=== PATIENT | male | born 1930 | race African-American/Black ===

== ENCOUNTER 2017-12-09 12:03 | Emergency (ER) ==
[2017-12-09 12:12] VITALS: BP 172/102; TEMP 97.9; BMI 21.9
--- NOTE | 2017-12-09 14:27 | ED.PDOC ---
General ED Provider: Dr. DOUGLAS VELEZ Chief Complaint: Urinary Problem Stated Complaint: frequency, urgency Time Seen by Physician: 12:10 (seen with and april ) Mode of Arrival: Walk-In Information Source: Patient Exam Limitations: No limitations Nursing and Triage Documentation Reviewed and Agree: Yes Reviewed sepsis parameters & appropriate labs ordered?: Yes (see with entire nursing staff) System Inflammatory Response Syndrome: Not Applicable Sepsis Protocol: For patient's 13 years and over: Temp is 96.8 and below OR 101 and greater Pulse >90 BPM Resp >20/minute Acutely Altered Mental Status Are patient's symptoms suggestive of a new infection, such as: -Pneumonia -Skin, Soft Tissue -Endocarditis -UTI -Bone, Joint Infection -Implantable Device -Acute Abdominal Infection -Wound Infection -Meningitis -Blood Stream Catheter Infection -Unknown System Inflammatory Response Syndrome: Not Applicable Complaint Exam - Complaint/Exam Patient Complains of: Denies: Scrotal pain, Scrotal swelling, Groin pain, Groin swelling, Dysuria Onset/Duration: 1day Symptoms Are: Resolved Timing: Intermittent Episodes of Voiding Over Last 12 Hours: 5 Initial Severity: Mild Current Severity: Mild Location of Pain: Reports: None, Left Aggravating: Reports: None Alleviating: Reports: None Associated Signs and Symptoms: Reports: Increased urine frequency. Denies: Diaphoresis, Back pain, Fever, Hematuria, Dysuria, Constipation, Blood in stool , Rectal pain, Appetite change, Nausea, Vomiting, Penile swelling, Penile discharge, Decreased urine output, Increased thirst, Decreased activity, Lethargy, Scrotal pain, Scrotal swelling, Abdominal Pain Related History: Reports: Similar episode Testicular Torsion Risk Factors: Reports: None Surgical Obstruction Risk Factors: Reports: None Related Surgical History: Reports: None Abdominal Findings: Present: None Differential Diagnoses: UTI Review of Systems - Review Of Systems Constitutional: Reports: No symptoms Eyes: Reports: No symptoms Ears, Nose, Mouth, Throat: Reports: No symptoms Respiratory: Reports: No symptoms Cardiac: Reports: No symptoms GI: Reports: No symptoms : Reports: Frequency Musculoskeletal: Reports: No symptoms Skin: Reports: No symptoms Neurological: Reports: No symptoms Endocrine: Reports: No symptoms Hematologic/Lymphatic: Reports: No symptoms All Other Systems: Reviewed and Negative Past Medical History - Past Medical History Previously Healthy: Yes Endocrine: Reports: None Cardiovascular: Reports: Hypertension Respiratory: Reports: None Hematological: Reports: None Gastrointestinal: Reports: None Genitourinary: Reports: None Neuro/Psych: Reports: None Musculoskeletal: Reports: None Cancer: Reports: None Other Pertinent Past Medical History: htn - Surgical History General Surgical History: Reports: Orthopedic (left knee replacement) - Family History Family History: Reports: Unknown - Social History Smoking Status: Former smoker Hx Substance Use: No Alcohol Screening: None Physical Exam - Physical Exam Appearance: Well-appearing, No pain distress, Well-nourished Eyes: MARILEE, EOMI, Conjunctiva clear ENT: Ears normal, Nose normal, Oropharynx normal Respiratory: Airway patent, Breath sounds clear, Breath sounds equal, Respirations nonlabored Cardiovascular: RRR, Pulses normal, No rub, No murmur GI/: Soft, Nontender, No masses, Bowel sounds normal, No Organomegaly Musculoskeletal: Normal strength, ROM intact, No edema, No calf tenderness Skin: Warm, Dry, Normal color Neurological: Sensation intact, Motor intact, Reflexes intact, Cranial nerves intact, Alert, Oriented Psychiatric: Affect appropriate, Mood appropriate Critical Care Note - Critical Care Note Total Time (mins): 0 Course - Course Hematology/Chemistry: 12/09/17 13:20 12/09/17 13:20 Orders, Labs, Meds: Lab Review 12/09/17 12/09/17 13:20 13:20 WBC 4.87 RBC 5.07 Hgb 12.0 L Hct 36.9 L MCV 72.8 L MCH 23.7 L MCHC 32.5 RDW Coeff of Yumiko 16.4 H Plt Count 154 Immature Gran % (Auto) 0.2 Neut % (Auto) 45.8 Lymph % (Auto) 37.8 Tucker % (Auto) 15.0 H Eos % (Auto) 1.0 Baso % (Auto) 0.2 Immature Gran # (Auto) 0.0 Neut # 2.2 Lymph # 1.8 Tucker # 0.7 Eos # 0.1 Baso # 0.0 Sodium 138 Potassium 3.6 Chloride 104 Carbon Dioxide 26 Anion Gap 11.6 BUN 19 H Creatinine 1.11 H Estimated GFR (MDRD) 76.00 BUN/Creatinine Ratio 17.11 Glucose 86 Calcium 8.9 Total Bilirubin 0.7 AST 21 ALT 16 Alkaline Phosphatase 74 Total Protein 7.2 Albumin 3.0 L Globulin 4.2 Albumin/Globulin Ratio 0.71 Orders Category Date Time Status CBC W/ AUTO DIFF Stat LAB 12/09/17 12:49 Ordered COMPREHENSIVE METABOLIC PANEL Stat LAB 12/09/17 12:49 Ordered URINALYSIS C & S IF INDICATED Stat LAB 12/09/17 12:[address] ABD/PEL WO RENAL STONE PROT Stat RADS 12/09/17 12:50 Ordered Vital Signs: Temp Pulse Resp BP Pulse Ox 12/09/17 12:07 97.9 F 73 16 172/102 H 94 L Departure - Departure Time of Disposition: 15:00 Disposition: HOME SELF-CARE Discharge Problem: Urinary symptoms Anemia Qualifiers: Iron deficiency anemia type: unspecified iron deficiency Instructions: Urinary Tract Infection in Men (ED), Urinary Urgency and Frequency (GEN) Condition: Good Pt referred to PMD for follow-up: Yes Additional Instructions: Please call your Family Physician as soon as possible to schedule a follow-up appointment. Allergies/Adverse Reactions: Allergies No Known Allergies Allergy (Unverified 12/09/17 12:05) Home Medications: Ambulatory Orders Blood Pressure Med 02/22/16 Phenazopyridine HCl [Pyridium] 200 mg PO TID PRN #10 tablet 02/22/16
== END 2017-12-09 14:40 | disposition home or self-care (01) ==
LOC: ED 12:03
DX: D50.9 Iron deficiency anemia, unspecified (principal); R35.0 Frequency of micturition; R39.15 Urgency of urination; I10 Essential (primary) hypertension
CPT/HCPCS: 36415; 80053; 81001; 85025; 99283

== ENCOUNTER 2018-08-14 13:27 | Emergency (ER) ==
[2018-08-14 13:39] VITALS: BP 156/110; TEMP 98; BMI 16.5
--- NOTE | 2018-08-14 13:56 | ED.PDOC ---
General ED Provider: Dr. PRISCA KEYES Chief Complaint: Altered Mental Status Stated Complaint: Unsure of why he is here in the ER;. EMS states that an [employer] worker came for visit today and found pt altered. Patient was notably is unkempt, had been incontinet of urine and bowel and clothing had a strong odor of urine. State he had dried urine stains on clothing noted. EMS checked blood sugar at residence and wast 44. he was administered oral glucose. Currently patient is alert. Patient denies any pain. EMS reported that living conditions were bad. Time Seen by Physician: 13:30 Mode of Arrival: Stretcher Information Source: Patient, EMT Exam Limitations: Clinical condition, Altered mental status Primary Care Provider: EMIR CAMPBELL Referred to ED by: Other Seen Within Last 72 Hours for Same Complaint By: ED Nursing and Triage Documentation Reviewed and Agree: Yes Does patient meet sepsis criteria?: No System Inflammatory Response Syndrome: Not Applicable Sepsis Protocol: For patient's 13 years and over: Temp is 96.8 and below OR 101 and greater Pulse >90 BPM Resp >20/minute Acutely Altered Mental Status Are patient's symptoms suggestive of a new infection, such as: -Pneumonia -Skin, Soft Tissue -Endocarditis -UTI -Bone, Joint Infection -Implantable Device -Acute Abdominal Infection -Wound Infection -Meningitis -Blood Stream Catheter Infection -Unknown Review of Systems - Review Of Systems Constitutional: Reports: No symptoms, Weakness Eyes: Reports: No symptoms Ears, Nose, Mouth, Throat: Reports: No symptoms Respiratory: Reports: No symptoms Cardiac: Reports: No symptoms GI: Reports: No symptoms : Reports: No symptoms Musculoskeletal: Reports: No symptoms Skin: Reports: No symptoms Neurological: Reports: No symptoms, Weakness Endocrine: Reports: No symptoms Hematologic/Lymphatic: Reports: No symptoms All Other Systems: Reviewed and Negative Past Medical History - Past Medical History Previously Healthy: Yes Endocrine: Reports: None Cardiovascular: Reports: Hypertension Respiratory: Reports: None Hematological: Reports: None Gastrointestinal: Reports: None Genitourinary: Reports: None Neuro/Psych: Reports: None Musculoskeletal: Reports: None Cancer: Reports: None Other Pertinent Past Medical History: htn - Surgical History General Surgical History: Reports: Orthopedic (left knee replacement) - Family History Family History: Reports: Unknown - Social History Smoking Status: Former smoker Hx Substance Use: No Alcohol Screening: None Physical Exam - Physical Exam Appearance: Thin, Cachectic Ill-appearing: Mild Pain Distress: None Eyes: MARILEE, EOMI, Conjunctiva clear ENT: Ears normal, Nose normal, Oropharynx normal Neck: Supple Respiratory: Airway patent, Breath sounds clear, Breath sounds equal, Respirations nonlabored Cardiovascular: RRR, Pulses normal, No rub, No murmur GI/: Soft, Nontender, No masses, Bowel sounds normal, No Organomegaly Musculoskeletal: Normal strength, ROM intact, No edema, No calf tenderness Skin: Warm, Dry, Normal color Neurological: Sensation intact, Motor intact, Reflexes intact, Cranial nerves intact, Alert, Oriented Psychiatric: Affect appropriate, Mood appropriate Physician Notification - Case Discussed Physician Notified: Dr Early Time of Notification: 16:20 (Discussed case -prefers to transfer to [facility] for critical care possible dialysis) Physician Notified: Dr Otto at [facility] Time of Notification: 16:45 Critical Care Note - Critical Care Note Total Time (mins): 60 Course - Course Hematology/Chemistry: 08/14/18 14:56 08/14/18 14:56 Orders, Labs, Meds: Lab Review 08/14/18 08/14/18 08/14/18 14:56 14:56 14:56 WBC 6.54 RBC 5.49 Hgb 12.7 L Hct 41.7 L MCV 76.0 L MCH 23.1 L MCHC 30.5 L RDW Coeff of Yumiko 20.6 H Plt Count 85 L Immature Gran % (Auto) 0.8 Neut % (Auto) 76.6 Lymph % (Auto) 15.7 Waldo % (Auto) 6.4 Eos % (Auto) 0.3 Baso % (Auto) 0.2 Immature Gran # (Auto) 0.1 Neut # (Auto) 5.0 Lymph # (Auto) 1.0 Waldo # (Auto) 0.4 Eos # (Auto) 0.0 Baso # (Auto) 0.0 Anisocytosis 1+ Puncture Site O2 Saturation ABG pH ABG pCO2 ABG pO2 ABG HCO3 ABG Total CO2 ABG Base Excess Mauro Test FiO2 % Sodium 167.6 H* Potassium 4.98 Chloride 142.0 H* Carbon Dioxide 18.4 L Anion Gap 12.18 BUN 95.7 H* Creatinine 6.61 H* Estimated GFR (MDRD) 10.00 BUN/Creatinine Ratio 14.47 Glucose 216.5 H Calcium 9.24 Magnesium 2.92 H Total Bilirubin 1.34 H AST 25.5 ALT 19.9 Alkaline Phosphatase 59.6 Total Protein 7.04 Albumin 3.43 L Globulin 3.61 Albumin/Globulin Ratio 0.95 Urine Color Urine Clarity Urine pH Ur Specific [place] Urine Protein Urine Glucose (UA) Urine Ketones Urine Blood Urine Nitrite Urine Bilirubin Urine Urobilinogen Ur Leukocyte Esterase Urine Microscopic RBC Urine Microscopic WBC Ur Squamous Epith Cells 08/14/18 08/14/18 15:40 16:24 WBC RBC Hgb Hct MCV MCH MCHC RDW Coeff of Yumiko Plt Count Immature Gran % (Auto) Neut % (Auto) Lymph % (Auto) Waldo % (Auto) Eos % (Auto) Baso % (Auto) Immature Gran # (Auto) Neut # (Auto) Lymph # (Auto) Waldo # (Auto) Eos # (Auto) Baso # (Auto) Anisocytosis Puncture Site Rr O2 Saturation 90.0 L ABG pH 7.283 L* ABG pCO2 33.9 L ABG pO2 66.0 L ABG HCO3 16.0 L ABG Total CO2 17 L ABG Base Excess -11 L Mauro Test + FiO2 % 21.0 Sodium Potassium Chloride Carbon Dioxide Anion Gap BUN Creatinine Estimated GFR (MDRD) BUN/Creatinine Ratio Glucose Calcium Magnesium Total Bilirubin AST ALT Alkaline Phosphatase Total Protein Albumin Globulin Albumin/Globulin Ratio Urine Color Yellow Urine Clarity Clear Urine pH 6.0 Ur Specific [place] 1.015 Urine Protein 1+ Urine Glucose (UA) Negative Urine Ketones Negative Urine Blood Trace-lysed Urine Nitrite Negative Urine Bilirubin Negative Urine Urobilinogen 0.2 Ur Leukocyte Esterase Negative Urine Microscopic RBC 0-2 Urine Microscopic WBC 0-2 Ur Squamous Epith Cells 0-2 Orders Category Date Time Status ABG DRAW REQUEST Stat CARDIO 08/14/18 16:24 Completed EKG-(ED ONLY) Stat CARDIO 08/14/18 14:20 Completed OXYGEN [ED APPLY O2] .ONCE EMERGENCY 08/14/18 16:22 Active ABG Stat LAB 08/14/18 16:24 Completed BLOOD CULTURE (ED ONLY) Stat LAB 08/14/18 14:56 Received CBC W/ AUTO DIFF Stat LAB 08/14/18 14:56 Completed CMP [COMPREHENSIVE METABOLIC PANEL] Stat LAB 08/14/18 14:56 Completed MAGNESIUM Stat LAB 08/14/18 14:56 Completed RBC MORPHOLOGY Stat LAB 08/14/18 14:56 Completed UA [URINALYSIS C & S IF INDICATED] Stat LAB 08/14/18 15:40 Completed 0.9 % Sodium Chloride [Saline Flush] MEDS 08/14/18 14:19 Active 1 syr IVF PRN PRN Dextrose 5 %-0.45 % NaCl [Dextrose 5%-1/2Ns IV Solution MEDS 08/14/18 16:17 Active ] 1,000 ml IV 125 mls/hr Dextrose 50 % in Water [Dextrose 50%-Water Abboject] MEDS 08/14/18 13:58 Discontinued 50 ml .ROUTE .STK-MED ONE Dextrose 50 % in Water [Dextrose 50%-Water Abboject] MEDS 08/14/18 14:11 Discontinued 50 ml IVP ONCE STA Sodium Chloride 0.9% [Sodium Chloride] 1,000 ml MEDS 08/14/18 14:11 Discontinued IV BOLUS CHEST, 1V AP ONLY Stat RADS 08/14/18 14:19 Completed Medications Generic Name Dose Route Start Last Admin Trade Name Freq PRN Reason Stop Dose Admin Dextrose/Sodium Chloride 1,000 mls @ 125 mls/hr 08/14/18 16:17 08/14/18 16:33 Dextrose 5%-1/2ns Iv Solution IV 08/15/18 00:16 125 mls/hr .Q8H STA Administration Sodium Chloride 1 syr 08/14/18 14:19 Saline Flush IVF PRN PRN To flush IV Discontinued Medications Generic Name Dose Route Start Last Admin Trade Name Freq PRN Reason Stop Dose Admin Dextrose 50 ml 08/14/18 14:11 08/14/18 14:16 Dextrose 50%-Water Abboject IVP 08/14/18 14:12 50 ml ONCE STA Administration Sodium Chloride 1,000 mls @ 500 mls/hr 08/14/18 14:11 08/14/18 14:16 Sodium Chloride IV 08/14/18 16:10 125 mls/hr BOLUS STA Administration Vital Signs: Temp Pulse Resp BP Pulse Ox 08/14/18 13:28 98 F 85 16 156/110 H 93 L Departure - Departure Time of Disposition: 16:50 Disposition: TSF SHORT-TRM HOSP Discharge Problem: Acute renal failure Condition: Poor Pt referred to PMD for follow-up: No (unknown) IPMP verified?: No Additional Instructions: Is accepted by DR Otto at [facility] Allergies/Adverse Reactions: Allergies No Known Allergies Allergy (Verified 08/14/18 13:43) Home Medications: Ambulatory Orders Lisinopril 20 mg PO DAILY 08/14/18 Transfer Form Completed: Yes Disposition Discussed With: Patient
[2018-08-14] MEDS ORDERED: DEXTROSE 50%-WATER ABBOJECT ONE (13:58)
[2018-08-14] MEDS ORDERED: DEXTROSE 50%-WATER ABBOJECT IVP STA (14:11)
[2018-08-14] MEDS ORDERED: SODIUM CHLORIDE 1,000 ML IV STA (14:11)
--- NOTE | 2018-08-14 14:56 | DI ---
EXAM: CHEST FRONTAL VIEW HISTORY: Dehydration. COMPARISON: 07/21/2010 FINDINGS: Prominent heart size. Ectasia of the aorta. These findings are stable. No acute infiltra edith are seen. No vascular congestion. There is no consolidation, visible pleural fluid or pneumotho rax. Bones reveal no acute fracture. IMPRESSION: No acute cardiopulmonary process.
[2018-08-14] MEDS ORDERED: DEXTROSE 5%-1/2NS IV SOLUTION 1,000 ML IV STA (16:17)
== END 2018-08-14 17:26 | disposition short-term general hospital (02) ==
LOC: ED 13:27
DX: N17.9 Acute kidney failure, unspecified (principal); R41.82 Altered mental status, unspecified; E16.2 Hypoglycemia, unspecified; R53.1 Weakness; I10 Essential (primary) hypertension; R15.9 Full incontinence of feces; R32 Unspecified urinary incontinence
CPT/HCPCS: 36415; 80053; 81001; 82803; 82962; 83735; 85008; 85025; 87040; 93005; 93010; 96360; 96375; 99285

== ENCOUNTER 2018-10-07 12:13 | Outpatient (CLI) | END 2018-10-07 12:32 | disposition short-term general hospital (02) | LOC: AMBL 12:13 | PROVIDERS: ATTEND Emergency Medicine | DX: R41.82 Altered mental status, unspecified (principal); R40.4 Transient alteration of awareness; I95.9 Hypotension, unspecified; R29.810 Facial weakness; R47.9 Unspecified speech disturbances; N18.9 Chronic kidney disease, unspecified; Z99.2 Dependence on renal dialysis; R40.2421 Glasgow coma scale score 9-12, in the field [EMT or ambulance] ==

== ENCOUNTER 2018-12-21 09:34 | Emergency (ER) ==
[2018-12-21] MEDS ORDERED: SODIUM CHLORIDE 1,000 ML IV STA (09:42)
[2018-12-21 09:48] VITALS: BP 107/78; TEMP 97.8; BMI 18.8
--- NOTE | 2018-12-21 10:29 | ED.PDOC ---
General ED Provider: Dr. DOUGLAS VELEZ Chief Complaint: Syncope Stated Complaint: syncope. while having breakfast Time Seen by Physician: 09:45 (arrived aox3 no acute distress no pain) Mode of Arrival: Ambulance Information Source: EMT Exam Limitations: No limitations Primary Care Provider: EMIR CAMPBELL Nursing and Triage Documentation Reviewed and Agree: Yes Does patient meet sepsis criteria?: No System Inflammatory Response Syndrome: Not Applicable Sepsis Protocol: For patient's 13 years and over: Temp is 96.8 and below OR 101 and greater Pulse >90 BPM Resp >20/minute Acutely Altered Mental Status Are patient's symptoms suggestive of a new infection, such as: -Pneumonia -Skin, Soft Tissue -Endocarditis -UTI -Bone, Joint Infection -Implantable Device -Acute Abdominal Infection -Wound Infection -Meningitis -Blood Stream Catheter Infection -Unknown Neurological Complaint Exam - Syncope/Near Syncope Complaint/Exam Onset/Duration: today Symptoms Are: Resolved Episodes Lasting: Seconds Number of Episodes: 1 Episodes Witnessed: Yes Loss of Consciousness: Yes Associated Head Trauma: No Activity at Onset: At rest Aggravating: None Alleviating: Reports: Spontaneous resolution Associated Signs and Symptoms: Denies: Pain, Decreased oral intake, Vomiting, Diarrhea, GI blood loss, Short of air, Chest pain, Palpitations, Diaphoresis, Lightheadedness, Dizziness, Weakness, AMS, Numbness, Headache, Seizure, Remote head trauma, Recent head trauma Related History: Similar episode Cardiac Risk Factors: Reports: None, Hypertension GI Bleed Risk Factors: Reports: None Dysrhythmia Risk Factors: Reports: >45 years old Related Surgical History: Reports: None JVD Present: No Carotid Bruit Present: No Rectal Heme Positive: Yes Glascow Coma Scale (see protocol): 15 Nystagmus Present: No Gag Reflex Present: Yes Meningeal Signs Positive: No Focal Weakness: Present: None Focal Sensory Loss: Present: None Gait: Normal Babinski Sign: Negative Right, Negative Left Differential Diagnoses: Dysrhythmia, GI Bleed, Hyperventilation, Hypoglycemia, Metabolic Reaction, Vasovagal Episode Quality Indicators for Cardiac Chest Pain: EKG in 10min. Quality Indicator For Non-Traumatic Chest Pain/Syncope: EKG Performed Review of Systems - Review Of Systems Constitutional: Reports: No symptoms Eyes: Reports: No symptoms Ears, Nose, Mouth, Throat: Reports: No symptoms Respiratory: Reports: No symptoms Cardiac: Reports: Syncope GI: Reports: No symptoms : Reports: No symptoms Musculoskeletal: Reports: No symptoms Skin: Reports: No symptoms Neurological: Reports: No symptoms Endocrine: Reports: No symptoms Hematologic/Lymphatic: Reports: No symptoms All Other Systems: Reviewed and Negative Past Medical History - Past Medical History Previously Healthy: Yes Endocrine: Reports: None Cardiovascular: Reports: Hypertension Respiratory: Reports: None Hematological: Reports: None Gastrointestinal: Reports: None Genitourinary: Reports: None Neuro/Psych: Reports: None Musculoskeletal: Reports: None Cancer: Reports: None Other Pertinent Past Medical History: htn - Surgical History General Surgical History: Reports: Orthopedic (left knee replacement) - Family History Family History: Reports: Unknown - Social History Smoking Status: Former smoker Hx Substance Use: No Alcohol Screening: None Physical Exam - Physical Exam Appearance: Well-appearing, No pain distress, Well-nourished Eyes: MARILEE, EOMI, Conjunctiva clear ENT: Ears normal, Nose normal, Oropharynx normal Respiratory: Airway patent, Breath sounds clear, Breath sounds equal, Respirations nonlabored Cardiovascular: RRR, Pulses normal, No rub, No murmur GI/: Soft, Nontender, No masses, Bowel sounds normal, No Organomegaly Musculoskeletal: Normal strength, ROM intact, No edema, No calf tenderness Skin: Warm, Dry, Normal color Neurological: Sensation intact, Motor intact, Reflexes intact, Cranial nerves intact, Alert, Oriented Psychiatric: Affect appropriate, Mood appropriate - NIH Stroke Scale 1a. Level of Consciousness: 0=Alert and keenly responsive 1b. Level of Consciousness Questions: 0=Answers correctly to two questions 1c. Level of Consciousness Commands: 0=Performs two tasks correctly 2. Best Gaze: 0=Normal 3. Visual: 0=No visual loss 4. Facial Palsy: 0=Normal 5a. Motor Left Arm: 0=No drift,arm holds 90 degrees for 10 sec., leg 30 degrees for 5 sec. 5b. Motor Right Arm: 0=No drift,arm holds 90 degrees for 10 sec., leg 30 degrees for 5 sec. 6a. Motor Left Le=No drift,arm holds 90 degrees for 10 sec., leg 30 degrees for 5 sec. 6b. Motor Right Le=No drift,arm holds 90 degrees for 10 sec., leg 30 degrees for 5 sec. 7. Limb Ataxia: 0=Absent 8. Sensory: 0=Normal 10. Dysarthria: 0=Normal 11. Extincion and Inattention: 0=Normal Stroke Scale Total: 0 Interpretation - Rn Peritoneal Dialysis Rate: Normal Rhythm: Sinus Ectopy: None - EKG Interpretation Rate: Normal Rhythm: Other (lafb lvh) Re-Evaluation - Re-Evaluation Time of Re-Evaluation: 10:00 Status: Improved Vital Signs Stable: Yes Pain Level: 0 Appearance: NAD Lungs: Clear Skin: Warm and Dry Neuro: Alert and Oriented X3 CV: RRR - Re-Evaluation Time of Re-Evaluation: 10:40 Status: Improved Vital Signs Stable: Yes Pain Level: 0 Appearance: NAD Skin: Warm and Dry Neuro: Alert and Oriented X3 CV: RRR Physician Notification - Case Discussed Physician Notified: alana Time of Notification: 10:32 (transfer to [facility] ) Physician Notified: MICHAELA SHAH Time of Notification: 10:51 (transfer to [facility]) Critical Care Note - Critical Care Note Total Time (mins): 0 Course - Course Hematology/Chemistry: 12/21/18 09:50 12/21/18 09:50 Orders, Labs, Meds: Lab Review 12/21/18 12/21/18 12/21/18 09:40 09:50 09:50 WBC 9.65 RBC 5.10 Hgb 12.1 L Hct 39.2 L MCV 76.9 L MCH 23.7 L MCHC 30.9 L RDW Coeff of Yumiko 14.2 Plt Count 142 Immature Gran % (Auto) 0.7 Neut % (Auto) 45.3 Lymph % (Auto) 40.3 Kern % (Auto) 10.4 H Eos % (Auto) 3.1 Baso % (Auto) 0.2 Immature Gran # (Auto) 0.1 Neut # (Auto) 4.4 Lymph # (Auto) 3.9 H Kern # (Auto) 1.0 Eos # (Auto) 0.3 Baso # (Auto) 0.0 PT 13.4 H INR 1.35 APTT 27.1 Puncture Site Lbrach O2 Saturation 99.0 ABG pH 7.442 ABG pCO2 41.7 ABG pO2 133.0 H ABG HCO3 28.4 H ABG Total CO2 30 H ABG Base Excess 4 H O2 Delivery Device Nc Oxygen Liter Flow 2.00 Sodium Potassium Chloride Carbon Dioxide Anion Gap BUN Creatinine Estimated GFR (MDRD) BUN/Creatinine Ratio Glucose Lactic Acid Calcium Total Bilirubin AST ALT Alkaline Phosphatase Total Creatine Kinase Troponin I Total Protein Albumin Globulin Albumin/Globulin Ratio Procalcitonin 12/21/18 12/21/18 12/21/18 09:50 09:50 09:50 WBC RBC Hgb Hct MCV MCH MCHC RDW Coeff of Yumiko Plt Count Immature Gran % (Auto) Neut % (Auto) Lymph % (Auto) Kern % (Auto) Eos % (Auto) Baso % (Auto) Immature Gran # (Auto) Neut # (Auto) Lymph # (Auto) Kern # (Auto) Eos # (Auto) Baso # (Auto) PT INR APTT Puncture Site O2 Saturation ABG pH ABG pCO2 ABG pO2 ABG HCO3 ABG Total CO2 ABG Base Excess O2 Delivery Device Oxygen Liter Flow Sodium 132.0 L Potassium 4.17 Chloride 94.0 L Carbon Dioxide 29.0 Anion Gap 13.17 BUN 31.2 H Creatinine 4.28 H* Estimated GFR (MDRD) 16.00 BUN/Creatinine Ratio 7.28 Glucose 121.4 H Lactic Acid 1.54 Calcium 9.45 Total Bilirubin 0.59 AST 38.4 ALT 28.1 Alkaline Phosphatase 97.8 Total Creatine Kinase 62.2 Troponin I 0.068 Total Protein 8.82 H Albumin 4.24 Globulin 4.58 Albumin/Globulin Ratio 0.92 Procalcitonin 0.48 Orders Category Date Time Status ABG DRAW REQUEST Stat CARDIO 12/21/18 09:40 Completed EKG-(ED ONLY) Stat CARDIO 12/21/18 09:40 Completed ED IV/MEDIPORT/POWERPORT .ONCE EMERGENCY 12/21/18 09:40 Active ABG Stat LAB 12/21/18 09:40 Completed BLOOD CULTURE (ED ONLY) Stat LAB 12/21/18 09:50 Received CBC W/ AUTO DIFF Stat LAB 12/21/18 09:50 Completed COMPREHENSIVE METABOLIC PANEL Stat LAB 12/21/18 09:50 Completed CREATINE KINASE Stat LAB 12/21/18 09:50 Completed LACTIC ACID Stat LAB 12/21/18 09:50 Completed PARTIAL THROMBOPLASTIN TIME Stat LAB 12/21/18 09:50 Completed PROCALCITONIN Stat LAB 12/21/18 09:50 Completed PT WITH INR Stat LAB 12/21/18 09:50 Completed TROPONIN I Stat LAB 12/21/18 09:50 Completed URINALYSIS C & S IF INDICATED Stat LAB 12/21/18 09:40 Uncollected 0.9 % Sodium Chloride [Saline Flush] MEDS 12/21/18 09:39 Active 1 syr IVF PRN PRN Sodium Chloride 0.9% [Sodium Chloride] 1,000 ml MEDS 12/21/18 09:42 Active IV 100 mls/hr CT CHEST W/O CONTRAST Stat RADS 12/21/18 09:41 Completed Medications Generic Name Dose Route Start Last Admin Trade Name Freq PRN Reason Stop Dose Admin Sodium Chloride 1,000 mls @ 100 mls/hr 12/21/18 09:42 Sodium Chloride IV 12/21/18 19:41 .Q10H STA Sodium Chloride 1 syr 12/21/18 09:39 Saline Flush IVF PRN PRN To flush IV Vital Signs: Temp Pulse Resp BP Pulse Ox 12/21/18 09:35 97.8 F 61 16 107/78 0 L Departure - Departure Time of Disposition: 10:51 Disposition: HOME SELF-CARE Discharge Problem: Syncope Instructions: Syncope (ED), Syncope in Older Adults (ED) Condition: Good Pt referred to PMD for follow-up: Yes IPMP verified?: No Additional Instructions: Please call your Family Physician as soon as possible to schedule a follow-up appointment. Allergies/Adverse Reactions: Allergies No Known Allergies Allergy (Verified 12/21/18 09:58) Home Medications: Ambulatory Orders Lisinopril 20 mg PO DAILY 08/14/18 Transfer Form Completed: Yes Disposition Discussed With: Patient
--- NOTE | 2018-12-21 10:30 | CT ---
Exam. CT scan of chest without contrast History. Syncope, short of breath comparison. Comparison Chest, 08/14/2018 Technique. Axial scans acquired at 5 mm slice thicknesses without contrast. Coronal and sagittal se quence completed FINDINGS There is a central venous catheter seen with the tip at the level of the right atrium. There is no p neumothorax. Evaluation mediastinum is limited without IV contrast. There is no mediastinal hematoma seen. There is ectasia ascending aorta measuring 3.5 cm compared descending aorta 3.0 cm. There is no pericardi al effusion. There is mild cardiomegaly. Minimal coronary calcification is seen. There is no pleur al effusion. No pulmonary edema is seen. No lobar consolidation pneumonia is seen. There are multi ple variable sized noncalcified as well as some calcified pulmonary nodules. There is a noncalcified 0.5 cm pulmonary nodule periphery right upper lobe, noncalcified 0.42 cm pulmonary nodule posterior right upper lobe, noncalcified 0.7 cm pulmonary nodule periphery the right lower lobe, noncalcified 0 .6 cm pulmonary nodule right lower lobe. Numerous additional noncalcified pulmonary nodules in the l eft lung. There is a noncalcified 0.5 cm pulmonary nodule anterior left upper lobe, noncalcified 1.0 cm pulmonary nodule lingular lobe, noncalcified 0.6 cm pulmonary nodule left lower lobe. Slightly t hickened or prominent left adrenal gland. Multiple variable sized right left renal cyst. Impression 1. No mediastinal hematoma. There is some irregularity of the body of the sternum with cortical thi ckening suggesting old injury. There is no presternal hematoma or edema. 2. Mild cardiomegaly. 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 No pulmonary edema. No lobar pneumonia. 3. Multiple calcified as well as numerous noncalcified pulmonary nodules as detailed above. Finding s could be due to granulomatous disease although occult metastatic foci not excluded. No prior CT st udies for comparison. Follow-up suggested 4. Central venous catheter seen with tip at the level of the right atrium. No pneumothorax. 5. Multiple renal cysts.
== END 2018-12-21 11:42 | disposition short-term general hospital (02) ==
LOC: ED 09:34
DX: R55 Syncope and collapse (principal); I10 Essential (primary) hypertension; Z79.899 Other long term (current) drug therapy
CPT/HCPCS: 36415; 80053; 82550; 82803; 83605; 84145; 84484; 85025; 85610; 85730; 87040; 93005; 93010; 99284

== ENCOUNTER 2019-08-09 10:26 | Outpatient (CLI) | END 2019-08-09 10:27 | disposition home or self-care (01) | LOC: NONPT 10:26 | PROVIDERS: ATTEND Internal Medicine | DX: N18.5 Chronic kidney disease, stage 5 (principal); I82.401 Acute embolism and thrombosis of unspecified deep veins of right lower extremity; Z79.01 Long term (current) use of anticoagulants | CPT/HCPCS: 85610 ==